=== PATIENT | female | born 1935 | race Caucasian/White ===

== ENCOUNTER 2022-02-11 11:42 | Emergency (ER) | payer MEDICARE ==
[2022-02-11 11:53] VITALS: TEMP 97.7
--- NOTE | 2022-02-11 11:55 | ED ---
General Adult HPI - General Chief complaint: Weakness Stated complaint: Poss Sepsis Time Seen by Provider: 02/11/22 11:54 Source: patient, RN notes reviewed Mode of arrival: wheelchair Limitations: no limitations - History of Present Illness Initial comments: Patient is an 86-year-old female presents to the emergency room with progressively worsening generalized weakness and malaise with associated nausea. She has a history of common bile duct obstruction with sepsis previously treated by Dr. Tremayne bush and inpatient at [facility]. She states the nausea has been ongoing for approximately 2 weeks but over the last few days she has needed to treat low-grade fevers with aspirin. She states that she does not have a thermometer at home but she has association. Warm feeling followed by chills. She denies any vomiting with her nausea. She has chronic diarrhea and abdominal pain which she is on fructosamine and Imodium for. She denies any blood or mucus in her stool. She denies any known exposure to COVID or influenza. She has past medical history significant for hypertension and hypothyroidism. She states that her thyroid medication was recently adjusted and due to side effects was brought back down to her previous dose of 50 g. Her granddaughter at the bedside also noted elevated liver enzymes during her previous hospitalization which were trending back to normal at her last lab check with her PCP. She denies any other complaints or concerns at this time. - Related Data Home Medications Medication Instructions Recorded Confirmed Aspirin 325 mg PO QID PRN 02/11/22 02/11/22 Aspirin EC [Ecotrin Low Dose] 81 mg PO PC-BRKFST 02/11/22 02/11/22 Famotidine [Pepcid] 20 mg PO BID 02/11/22 02/11/22 Hyoscyamine Sulfate [Levsin-Sl] 0.125 mg SL Q4H 02/11/22 02/11/22 Levothyroxine Sodium [Synthroid] 50 mcg PO AC-BRKFST 02/11/22 02/11/22 Losartan [Cozaar] 50 mg PO PC-BRKFST 02/11/22 02/11/22 Magnesium Oxide [Mag-Ox] 250 mg PO DAILY@1400 02/11/22 02/11/22 amLODIPine [Norvasc] 5 mg PO PC-BRKFST 06/12/22 06/12/22 Previous Rx's Medication Instructions Recorded Ciprofloxacin HCl [Cipro] 500 mg PO BID 5 Days #10 tab 02/11/22 Allergies Allergy/AdvReac Type Severity Reaction Status Date / Time Penicillins Allergy Rash/Hives Verified 02/11/22 13:15 Sulfa (Sulfonamide Allergy Rash/Hives Verified 02/11/22 13:15 Antibiotics) Iodinated Contrast Media AdvReac Swelling Verified 02/11/22 13:15 all over body Review of Systems ROS Statement: Those systems with pertinent positive or pertinent negative responses have been documented in the HPI. ROS Other: All systems not noted in ROS Statement are negative. Past Medical History Past Medical History: Hypertension, Thyroid Disorder History of Any Multi-Drug Resistant Organisms: None Reported Past Surgical History: Appendectomy, Bowel Resection Past Psychological History: No Psychological Hx Reported Smoking Status: Never smoker Past Alcohol Use History: None Reported Past Drug Use History: None Reported General Exam Limitations: no limitations General appearance: alert, in no apparent distress Head exam: Present: atraumatic, normocephalic, normal inspection Eye exam: Present: normal appearance, PERRL, EOMI. Absent: scleral icterus, conjunctival injection, periorbital swelling ENT exam: Present: normal exam, mucous membranes moist Neck exam: Present: normal inspection. Absent: tenderness, meningismus, lymphadenopathy Respiratory exam: Present: normal lung sounds bilaterally. Absent: respiratory distress, wheezes, rales, rhonchi, stridor Cardiovascular Exam: Present: regular rate, normal rhythm, systolic murmur (II/). Absent: rubs, gallop, clicks, JVD GI/Abdominal exam: Present: soft, normal bowel sounds. Absent: distended, tenderness, guarding, rebound, rigid Rectal exam: Present: deferred Extremities exam: Absent: tenderness, pedal edema, joint swelling Back exam: Absent: CVA tenderness (R), CVA tenderness (L) Neurological exam: Present: alert, oriented X3, CN II-XII intact Psychiatric exam: Present: normal affect, normal mood Skin exam: Present: warm, dry, intact, normal color. Absent: rash Course Vital Signs 02/11/22 02/11/22 02/11/22 11:51 13:30 14:00 Temperature 97.7 F Pulse Rate 86 79 81 Respiratory 16 15 27 H Rate Blood Pressure 146/84 147/80 154/90 O2 Sat by Pulse 98 96 95 Oximetry Medical Decision Making - Medical Decision Making Overall lab stable. No leukocytosis or elevated lactic acid level noted. Liver enzymes normal. Sodium slightly low chloride slightly low. IV fluids started for gentle hydration. Computed tomography scan due to Nausea along with previous history previous ERCP and bacteremia. 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 Previous computed tomography scan from and October reviewed showing computed tomography scan at that time at 3.6 cm. No abdominal pain or pulsation noted. 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 UA consistent for urinary tract infection. ALLERGIES to penicillin and sulfa noted. Reports no compilations from Cipro previously. Will treat with oral Cipro. Patient also complaining of slight headache at this time which she takes aspirin for regularly at home. No associated neurological deficits with headaches. Headache characteristic and pain level unchanged from previous headaches. Discussed the risk factors associated with regular aspirin use advised may continue baby aspirin at home but to use utilize Tylenol as needed for headache pain. Will give dose of oral Tylenol and monitor response. If improvement in headache symptoms will discharge home on oral medications. - Lab Data Result diagrams: 02/11/22 12:19 02/11/22 12:19 Lab Results 02/11/22 02/11/22 02/11/22 Range/Units 12:19 12:19 12:19 WBC 9.8 (3.8-10.6) k/uL RBC 4.97 (3.80-5.40) m/uL Hgb 14.6 (11.4-16.0) gm/dL Hct 42.2 (34.0-46.0) % MCV 84.9 (80.0-100.0) fL MCH 29.3 (25.0-35.0) pg MCHC 34.5 (31.0-37.0) g/dL RDW 13.5 (11.5-15.5) % Plt Count 271 (150-450) k/uL MPV 7.1 Neutrophils % 83 % Lymphocytes % 10 % Monocytes % 4 % Eosinophils % 2 % Basophils % 1 % Neutrophils # 8.2 H (1.3-7.7) k/uL Lymphocytes # 0.9 L (1.0-4.8) k/uL Monocytes # 0.4 (0-1.0) k/uL Eosinophils # 0.2 (0-0.7) k/uL Basophils # 0.1 (0-0.2) k/uL PT 10.5 (9.0-12.0) sec INR 1.0 (<1.2) APTT 26.2 (22.0-30.0) sec Sodium (137-145) mmol/L Potassium (3.5-5.1) mmol/L Chloride (98-107) mmol/L Carbon Dioxide (22-30) mmol/L Anion Gap mmol/L BUN (7-17) mg/dL Creatinine (0.52-1.04) mg/dL Est GFR (CKD-EPI)AfAm (>60 ml/min/1.73 sqM) Est GFR (CKD-EPI)NonAf (>60 ml/min/1.73 sqM) Glucose (74-99) mg/dL Plasma Lactic Acid [place] (0.7-2.0) mmol/L Calcium (8.4-10.2) mg/dL Total Bilirubin (0.2-1.3) mg/dL AST (14-36) U/L ALT (4-34) U/L Alkaline Phosphatase (38-126) U/L Troponin I (0.000-0.034) ng/mL Total Protein (6.3-8.2) g/dL Albumin (3.5-5.0) g/dL TSH (0.465-4.680) mIU/L Urine Color Light Yellow Urine Appearance Cloudy H (Clear) Urine pH 6.5 (5.0-8.0) Ur Specific [place] 1.006 (1.001-1.035) Urine Protein Negative (Negative) Urine Glucose (UA) Negative (Negative) Urine Ketones Negative (Negative) Urine Blood Negative (Negative) Urine Nitrite Negative (Negative) Urine Bilirubin Negative (Negative) Urine Urobilinogen <2.0 (<2.0) mg/dL Ur Leukocyte Esterase Large H (Negative) Urine RBC 1 (0-5) /hpf Urine WBC 60 H (0-5) /hpf Urine WBC Clumps Rare H (None) /hpf Ur Squamous Epith Cells 4 (0-4) /hpf Urine Bacteria Few H (None) /hpf Urine Mucus Rare H (None) /hpf Coronavirus (PCR) (Not Detectd) Influenza Type A RNA (Not Detectd) Influenza Type B (PCR) (Not Detectd) 02/11/22 02/11/22 02/11/22 Range/Units 12:19 12:19 12:19 WBC (3.8-10.6) k/uL RBC (3.80-5.40) m/uL Hgb (11.4-16.0) gm/dL Hct (34.0-46.0) % MCV (80.0-100.0) fL MCH (25.0-35.0) pg MCHC (31.0-37.0) g/dL RDW (11.5-15.5) % Plt Count (150-450) k/uL MPV Neutrophils % % Lymphocytes % % Monocytes % % Eosinophils % % Basophils % % Neutrophils # (1.3-7.7) k/uL Lymphocytes # (1.0-4.8) k/uL Monocytes # (0-1.0) k/uL Eosinophils # (0-0.7) k/uL Basophils # (0-0.2) k/uL PT (9.0-12.0) sec INR (<1.2) APTT (22.0-30.0) sec Sodium 127 L (137-145) mmol/L Potassium 4.3 (3.5-5.1) mmol/L Chloride 94 L (98-107) mmol/L Carbon Dioxide 22 (22-30) mmol/L Anion Gap 11 mmol/L BUN 13 (7-17) mg/dL Creatinine 0.71 (0.52-1.04) mg/dL Est GFR (CKD-EPI)AfAm 89 (>60 ml/min/1.73 sqM) Est GFR (CKD-EPI)NonAf 77 (>60 ml/min/1.73 sqM) Glucose 119 H (74-99) mg/dL Plasma Lactic Acid [place] 1.1 (0.7-2.0) mmol/L Calcium 9.1 (8.4-10.2) mg/dL Total Bilirubin 0.8 (0.2-1.3) mg/dL AST 27 (14-36) U/L ALT 17 (4-34) U/L Alkaline Phosphatase 99 (38-126) U/L Troponin I <0.012 (0.000-0.034) ng/mL Total Protein 7.2 (6.3-8.2) g/dL Albumin 4.1 (3.5-5.0) g/dL TSH 2.300 (0.465-4.680) mIU/L Urine Color Urine Appearance (Clear) Urine pH (5.0-8.0) Ur Specific [place] (1.001-1.035) Urine Protein (Negative) Urine Glucose (UA) (Negative) Urine Ketones (Negative) Urine Blood (Negative) Urine Nitrite (Negative) Urine Bilirubin (Negative) Urine Urobilinogen (<2.0) mg/dL Ur Leukocyte Esterase (Negative) Urine RBC (0-5) /hpf Urine WBC (0-5) /hpf Urine WBC Clumps (None) /hpf Ur Squamous Epith Cells (0-4) /hpf Urine Bacteria (None) /hpf Urine Mucus (None) /hpf Coronavirus (PCR) (Not Detectd) Influenza Type A RNA (Not Detectd) Influenza Type B (PCR) (Not Detectd) 02/11/22 02/11/22 Range/Units 14:15 14:15 WBC (3.8-10.6) k/uL RBC (3.80-5.40) m/uL Hgb (11.4-16.0) gm/dL Hct (34.0-46.0) % MCV (80.0-100.0) fL MCH (25.0-35.0) pg MCHC (31.0-37.0) g/dL RDW (11.5-15.5) % Plt Count (150-450) k/uL MPV Neutrophils % % Lymphocytes % % Monocytes % % Eosinophils % % Basophils % % Neutrophils # (1.3-7.7) k/uL Lymphocytes # (1.0-4.8) k/uL Monocytes # (0-1.0) k/uL Eosinophils # (0-0.7) k/uL Basophils # (0-0.2) k/uL PT (9.0-12.0) sec INR (<1.2) APTT (22.0-30.0) sec Sodium (137-145) mmol/L Potassium (3.5-5.1) mmol/L Chloride (98-107) mmol/L Carbon Dioxide (22-30) mmol/L Anion Gap mmol/L BUN (7-17) mg/dL Creatinine (0.52-1.04) mg/dL Est GFR (CKD-EPI)AfAm (>60 ml/min/1.73 sqM) Est GFR (CKD-EPI)NonAf (>60 ml/min/1.73 sqM) Glucose (74-99) mg/dL Plasma Lactic Acid [place] (0.7-2.0) mmol/L Calcium (8.4-10.2) mg/dL Total Bilirubin (0.2-1.3) mg/dL AST (14-36) U/L ALT (4-34) U/L Alkaline Phosphatase (38-126) U/L Troponin I (0.000-0.034) ng/mL Total Protein (6.3-8.2) g/dL Albumin (3.5-5.0) g/dL TSH (0.465-4.680) mIU/L Urine Color Urine Appearance (Clear) Urine pH (5.0-8.0) Ur Specific [place] (1.001-1.035) Urine Protein (Negative) Urine Glucose (UA) (Negative) Urine Ketones (Negative) Urine Blood (Negative) Urine Nitrite (Negative) Urine Bilirubin (Negative) Urine Urobilinogen (<2.0) mg/dL Ur Leukocyte Esterase (Negative) Urine RBC (0-5) /hpf Urine WBC (0-5) /hpf Urine WBC Clumps (None) /hpf Ur Squamous Epith Cells (0-4) /hpf Urine Bacteria (None) /hpf Urine Mucus (None) /hpf Coronavirus (PCR) Not Detected (Not Detectd) Influenza Type A RNA Not Detected (Not Detectd) Influenza Type B (PCR) Not Detected (Not Detectd) EKG shows sinus rhythm with possible anterior myocardial infarct probably old. 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 No acute abnormalities the abdomen and pelvis. 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 Disposition Clinical Impression: UTI (urinary tract infection) Disposition: HOME SELF-CARE Condition: Stable Instructions (If sedation given, give patient instructions): Urinary Tract Infection in Women (ED) Additional Instructions: Please return to the Emergency Department if symptoms worsen or any other concerns. Prescriptions: Ciprofloxacin HCl [Cipro] 500 mg PO BID 5 Days #10 tab Is patient prescribed a controlled substance at d/c from ED?: No Referrals: Burak Odom MD [Primary Care Provider] - 1-2 days Time of Disposition: 16:16
[2022-02-11] MEDS ORDERED: SODIUM CHLORIDE 0.9% 1,000 ML IV STA (12:03)
[2022-02-11 13:01] LABS: HCT 42.2 % (34.0-46.0); HGB 14.6 gm/dL (11.4-16.0); MCH 29.3 pg (25.0-35.0); MCHC 34.5 g/dL (31.0-37.0); MCV 84.9 fL (80.0-100.0); Mean Platelet Volume 7.1; Neutrophils % (A) 83 %; Platelet Count 271 k/uL (150-450); RBC 4.97 m/uL (3.80-5.40); RDW 13.5 % (11.5-15.5); WBC 9.8 k/uL (3.8-10.6)
[2022-02-11 13:02] LABS: Basophils # (A) 0.1 k/uL (0-0.2); Basophils % (A) 1 %; Eosinophils # (A) 0.2 k/uL (0-0.7); Eosinophils % (A) 2 %; Lymphocytes # (A) 0.9 k/uL (1.0-4.8); Lymphocytes % (A) 10 %; Monocytes # (A) 0.4 k/uL (0-1.0); Monocytes % (A) 4 %; Neutrophils # (A) 8.2 k/uL (1.3-7.7)
[2022-02-11 13:07] LABS: Partial Thromboplastin Time 26.2 sec (22.0-30.0); Prothrombin Time 10.5 sec (9.0-12.0)
[2022-02-11 13:10] LABS: Albumin 4.1 g/dL (3.5-5.0); Calcium 9.1 mg/dL (8.4-10.2); Potassium 4.3 mmol/L (3.5-5.1); Total Bilirubin 0.8 mg/dL (0.2-1.3); Total Protein 7.2 g/dL (6.3-8.2)
[2022-02-11] MEDS ORDERED: DEXTROSE 5%-0.45% NACL 1,000 ML IV ONE (13:51)
--- NOTE | 2022-02-11 14:55 | CT ---
EXAMINATION TYPE: CT abdomen pelvis wo con DATE OF EXAM: 02/11/2022 COMPARISON: None HISTORY: Abdominal pain, hx CBD obstruction CT DLP: 419 mGycm Automated exposure control for dose reduction was used. Images obtained from the diaphragm to the floor the pelvis with no contrast. There is some patchy scarring and atelectasis at the lung bases. Heart size is normal. No pericardial effusion. No pleural effusion. Liver is intact. There are clips from cholecystectomy. Spleen is intact. There is no pancreatic mass. Stomach is intact. There is no adrenal mass. Kidneys show normal size and contour. No hydronephrosis. Ureters are not di lated. There is no retroperitoneal adenopathy. Bladder distends smoothly. There is left lower quadran t ventral hernia on the left side that contains small bowel. No bowel obstruction. There is no mesent richie edema. No ascites or free air. No sign of a bowel obstruction. Appendix not seen. No sign of thi ckened appendix. There is stent in the abdominal aorta. There is atherosclerotic vascular disease. Th ere are multiple sigmoid diverticula. No diverticulitis. 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 No evidence of a leak. There is mild thoracolumbar levoscoliosis. Bony pelvis is intact. No evidence of a hip fracture. Ther e is a degenerative first-degree L4-5 spondylolisthesis. IMPRESSION: Aortoiliac endograft. Aneurysm lower abdominal aorta. No acute abnormality in the abdomen and pelvis. Ventral hernia with some incarcerated small bowel but no bowel obstruction. Scarring and atelectasis at the lung bases.
[2022-02-11 15:54] LABS: Appearance,Urine Cloudy (Clear); Bacteria,Urine Few /hpf; Bilirubin,Urine Negative (Negative); Blood,Urine Negative (Negative); Color,Urine Light Yellow; Glucose,Urine (UA) Negative (Negative); Ketones,Urine Negative (Negative); Leukocyte Esterase,Urine Large (Negative); Mucus,Urine Rare /hpf; Nitrite,Urine Negative (Negative); PH, Urine 6.5 (5.0-8.0); Protein,Urine Negative (Negative); RBC,Urine 1 /hpf (0-5); Specific Gravity,Urine 1.006 (1.001-1.035); Squamous Epithelial Cell,Urine 4 /hpf (0-4); Urobilinogen,Urine <2.0 mg/dL (<2.0); WBC,Urine 60 /hpf (0-5)
[2022-02-11] MEDS ORDERED: CIPROFLOXACIN HCL 500 MG TAB PO STA (16:09)
[2022-02-11] MEDS ORDERED: ACETAMINOPHEN TAB 500 MG TAB PO STA (16:10)
[2022-02-11 16:58] VITALS: BP 167/85; PULSE 86; RESP 18
== END 2022-02-11 17:05 | disposition home or self-care (01) ==
LOC: EC 11:42
DX: N39.0 Urinary tract infection, site not specified (principal); Z91.041 Radiographic dye allergy status; I10 Essential (primary) hypertension; E07.9 Disorder of thyroid, unspecified; Z79.899 Other long term (current) drug therapy; Z20.822 Contact with and (suspected) exposure to COVID-19; Z88.0 Allergy status to penicillin; Z88.2 Allergy status to sulfonamides
CPT/HCPCS: 36415; 74176; 80053; 81001; 83605; 84443; 84484; 85025; 85610; 85730; 87040; 87077; 87086; 87186; 87502; 87635; 93005; 96360; 96361; 99285

== ENCOUNTER 2022-02-28 07:26 | Inpatient (IN) | payer MEDICARE ==
[2022-02-28] MEDS ORDERED: SODIUM CHLORIDE 0.9% 1,000 ML IV STA (07:32)
[2022-02-28] MEDS ORDERED: SODIUM CHLORIDE 0.9% 500 ML 500 ML IV STA (07:32)
[2022-02-28] MEDS ORDERED: ONDANSETRON 4 MG/2 ML VIAL IVP STA (07:32)
--- NOTE | 2022-02-28 07:39 | ED ---
General Adult HPI - General Stated complaint: UTI Time Seen by Provider: 02/28/22 07:26 Source: patient, EMS, RN notes reviewed, old records reviewed Mode of arrival: EMS - History of Present Illness Initial comments: 86-year-old female history of urinary tract infections and irritable bowel partial colon resection aortic stent also history of common bile duct obstruction past who presents by EMS today with complaints of not feeling well for last day or so she did decrease oral intake she's had nausea vomiting. She was started on Macrobid 3 days ago apparently empirically for suspected UTI she has been taking an empty stomach but she does not feel very well she feels weak and feels as if she would fall she try to walk. No overt fever she has she'll cold in the emergency department no known exposure to influenza or COVID-19 she was seen in this department on the of this month and diagnosed with a UTI at that time. She was placed on Cipro. - Related Data Home Medications Medication Instructions Recorded Confirmed Hyoscyamine Sulfate [Levsin-Sl] 0.125 mg SL AC-TID PRN 02/11/22 02/28/22 Levothyroxine Sodium [Synthroid] 50 mcg PO AC-BRKFST 02/11/22 02/28/22 Losartan [Cozaar] 50 mg PO PC-BRKFST 02/11/22 02/28/22 amLODIPine [Norvasc] 5 mg PO PC-BRKFST 02/11/22 02/28/22 Loperamide [Imodium] 2 mg PO QID PRN 02/28/22 02/28/22 Nitrofurantoin Monohyd/M-Cryst 100 mg PO Q12HR 02/28/22 02/28/22 [Macrobid] Ondansetron Odt [Zofran Odt] 4 mg PO Q8H PRN 02/28/22 02/28/22 Allergies Allergy/AdvReac Type Severity Reaction Status Date / Time Penicillins Allergy Rash/Hives Verified 02/28/22 07:48 Sulfa (Sulfonamide Allergy Rash/Hives Verified 02/28/22 07:48 Antibiotics) Iodinated Contrast Media AdvReac Swelling Verified 02/28/22 07:48 all over body Review of Systems ROS Statement: Those systems with pertinent positive or pertinent negative responses have been documented in the HPI. ROS Other: All systems not noted in ROS Statement are negative. Past Medical History Past Medical History: Hypertension, Thyroid Disorder History of Any Multi-Drug Resistant Organisms: None Reported Past Surgical History: Appendectomy, Bowel Resection Past Psychological History: No Psychological Hx Reported Smoking Status: Never smoker Past Alcohol Use History: None Reported Past Drug Use History: None Reported General Exam - General Exam Comments Initial Comments: This is a well-developed frail-appearing female who is awake alert oriented 4 General appearance: alert, lethargic Head exam: Present: atraumatic, normocephalic, normal inspection Eye exam: Present: normal appearance, PERRL, EOMI. Absent: scleral icterus, conjunctival injection, periorbital swelling ENT exam: Present: mucous membranes dry Neck exam: Present: normal inspection, full ROM, other (No stridor JVD or bruits). Absent: tenderness, meningismus, lymphadenopathy Respiratory exam: Present: normal lung sounds bilaterally. Absent: respiratory distress, wheezes, rales, rhonchi, stridor Cardiovascular Exam: Present: normal rhythm, tachycardia, normal heart sounds. Absent: systolic murmur, diastolic murmur, rubs, gallop, clicks GI/Abdominal exam: Present: soft, normal bowel sounds. Absent: distended, tenderness, guarding, rebound, rigid, bruit, pulsatile mass Rectal exam: Present: deferred Extremities exam: Present: normal inspection, full ROM, normal capillary refill. Absent: tenderness, pedal edema, joint swelling, calf tenderness Back exam: Present: normal inspection Neurological exam: Present: alert, oriented X3, CN II-XII intact Psychiatric exam: Present: normal affect, normal mood Skin exam: Present: warm, dry, intact, normal color. Absent: rash Course Vital Signs 02/28/22 02/28/22 02/28/22 07:41 09:16 11:00 Temperature 101 F H 98.2 F Pulse Rate 121 H 109 H 88 Respiratory 18 16 18 Rate Blood Pressure 148/89 98/64 106/55 O2 Sat by Pulse 96 96 96 Oximetry EKG Findings - EKG Results: EKG: interpreted by LUCAS, sinus rhythm (Sinus tachycardia rate 122. Interval 133 QRS taoism 81 QT since QTC 311/383 st-t wave changes) Medical Decision Making - Medical Decision Making I did discuss findings with the patient as well as family members were present patient does trace evidence of dehydration she had a fever but no definitive infectious process is obvious at this time no air-fluid levels may be intra- abdominal. Patient be admitted I did discuss case with Dr. Patino. Patient will be admitted place on IV antibiotics Levaquin and Flagyl Dr. Paul will be consulted from infectious disease. Patient also demonstrate evidence of hypomagnesemia as well as hyponatremia. - Lab Data Result diagrams: 02/28/22 07:56 02/28/22 07:56 Lab Results 02/28/22 02/28/22 02/28/22 Range/Units 07:56 07:56 07:56 WBC 15.7 H (3.8-10.6) k/uL RBC 4.77 (3.80-5.40) m/uL Hgb 14.0 (11.4-16.0) gm/dL Hct 40.7 (34.0-46.0) % MCV 85.3 (80.0-100.0) fL MCH 29.3 (25.0-35.0) pg MCHC 34.4 (31.0-37.0) g/dL RDW 12.7 (11.5-15.5) % Plt Count 240 (150-450) k/uL MPV 7.8 Neutrophils % 94 % Lymphocytes % 1 % Monocytes % 4 % Eosinophils % 1 % Basophils % 0 % Neutrophils # 14.7 H (1.3-7.7) k/uL Lymphocytes # 0.1 L (1.0-4.8) k/uL Monocytes # 0.6 (0-1.0) k/uL Eosinophils # 0.2 (0-0.7) k/uL Basophils # 0.0 (0-0.2) k/uL Sodium 124 L (137-145) mmol/L Potassium 4.6 (3.5-5.1) mmol/L Chloride 95 L (98-107) mmol/L Carbon Dioxide 21 L (22-30) mmol/L Anion Gap 8 mmol/L BUN 11 (7-17) mg/dL Creatinine 0.68 (0.52-1.04) mg/dL Est GFR (CKD-EPI)AfAm >90 (>60 ml/min/1.73 sqM) Est GFR (CKD-EPI)NonAf 79 (>60 ml/min/1.73 sqM) Glucose 156 H (74-99) mg/dL Plasma Lactic Acid Juan Pablo (0.7-2.0) mmol/L Calcium 8.9 (8.4-10.2) mg/dL Magnesium 1.3 L (1.6-2.3) mg/dL Total Bilirubin 1.0 (0.2-1.3) mg/dL AST 35 (14-36) U/L ALT 22 (4-34) U/L Alkaline Phosphatase 101 (38-126) U/L Troponin I (0.000-0.034) ng/mL Total Protein 7.1 (6.3-8.2) g/dL Albumin 4.0 (3.5-5.0) g/dL Amylase 52 (30-110) U/L Lipase 73 (23-300) U/L Urine Color Yellow Urine Appearance Clear (Clear) Urine pH 7.0 (5.0-8.0) Ur Specific [place] 1.010 (1.001-1.035) Urine Protein Negative (Negative) Urine Glucose (UA) Negative (Negative) Urine Ketones 1+ H (Negative) Urine Blood Negative (Negative) Urine Nitrite Negative (Negative) Urine Bilirubin Negative (Negative) Urine Urobilinogen <2.0 (<2.0) mg/dL Ur Leukocyte Esterase Small H (Negative) Urine RBC 1 (0-5) /hpf Urine WBC 6 H (0-5) /hpf Ur Squamous Epith Cells 3 (0-4) /hpf Hyaline Casts 1 (0-2) /lpf Urine Mucus Rare H (None) /hpf Coronavirus (PCR) (Not Detectd) Influenza Type A RNA (Not Detectd) Influenza Type B (PCR) (Not Detectd) 02/28/22 02/28/22 02/28/22 Range/Units 07:56 07:56 07:56 WBC (3.8-10.6) k/uL RBC (3.80-5.40) m/uL Hgb (11.4-16.0) gm/dL Hct (34.0-46.0) % MCV (80.0-100.0) fL MCH (25.0-35.0) pg MCHC (31.0-37.0) g/dL RDW (11.5-15.5) % Plt Count (150-450) k/uL MPV Neutrophils % % Lymphocytes % % Monocytes % % Eosinophils % % Basophils % % Neutrophils # (1.3-7.7) k/uL Lymphocytes # (1.0-4.8) k/uL Monocytes # (0-1.0) k/uL Eosinophils # (0-0.7) k/uL Basophils # (0-0.2) k/uL Sodium (137-145) mmol/L Potassium (3.5-5.1) mmol/L Chloride (98-107) mmol/L Carbon Dioxide (22-30) mmol/L Anion Gap mmol/L BUN (7-17) mg/dL Creatinine (0.52-1.04) mg/dL Est GFR (CKD-EPI)AfAm (>60 ml/min/1.73 sqM) Est GFR (CKD-EPI)NonAf (>60 ml/min/1.73 sqM) Glucose (74-99) mg/dL Plasma Lactic Acid Juan Pablo 1.6 (0.7-2.0) mmol/L Calcium (8.4-10.2) mg/dL Magnesium (1.6-2.3) mg/dL Total Bilirubin (0.2-1.3) mg/dL AST (14-36) U/L ALT (4-34) U/L Alkaline Phosphatase (38-126) U/L Troponin I <0.012 (0.000-0.034) ng/mL Total Protein (6.3-8.2) g/dL Albumin (3.5-5.0) g/dL Amylase (30-110) U/L Lipase (23-300) U/L Urine Color Urine Appearance (Clear) Urine pH (5.0-8.0) Ur Specific [place] (1.001-1.035) Urine Protein (Negative) Urine Glucose (UA) (Negative) Urine Ketones (Negative) Urine Blood (Negative) Urine Nitrite (Negative) Urine Bilirubin (Negative) Urine Urobilinogen (<2.0) mg/dL Ur Leukocyte Esterase (Negative) Urine RBC (0-5) /hpf Urine WBC (0-5) /hpf Ur Squamous Epith Cells (0-4) /hpf Hyaline Casts (0-2) /lpf Urine Mucus (None) /hpf Coronavirus (PCR) (Not Detectd) Influenza Type A RNA Not Detected (Not Detectd) Influenza Type B (PCR) Not Detected (Not Detectd) 02/28/22 Range/Units 07:56 WBC (3.8-10.6) k/uL RBC (3.80-5.40) m/uL Hgb (11.4-16.0) gm/dL Hct (34.0-46.0) % MCV (80.0-100.0) fL MCH (25.0-35.0) pg MCHC (31.0-37.0) g/dL RDW (11.5-15.5) % Plt Count (150-450) k/uL MPV Neutrophils % % Lymphocytes % % Monocytes % % Eosinophils % % Basophils % % Neutrophils # (1.3-7.7) k/uL Lymphocytes # (1.0-4.8) k/uL Monocytes # (0-1.0) k/uL Eosinophils # (0-0.7) k/uL Basophils # (0-0.2) k/uL Sodium (137-145) mmol/L Potassium (3.5-5.1) mmol/L Chloride (98-107) mmol/L Carbon Dioxide (22-30) mmol/L Anion Gap mmol/L BUN (7-17) mg/dL Creatinine (0.52-1.04) mg/dL Est GFR (CKD-EPI)AfAm (>60 ml/min/1.73 sqM) Est GFR (CKD-EPI)NonAf (>60 ml/min/1.73 sqM) Glucose (74-99) mg/dL Plasma Lactic Acid Juan Pablo (0.7-2.0) mmol/L Calcium (8.4-10.2) mg/dL Magnesium (1.6-2.3) mg/dL Total Bilirubin (0.2-1.3) mg/dL AST (14-36) U/L ALT (4-34) U/L Alkaline Phosphatase (38-126) U/L Troponin I (0.000-0.034) ng/mL Total Protein (6.3-8.2) g/dL Albumin (3.5-5.0) g/dL Amylase (30-110) U/L Lipase (23-300) U/L Urine Color Urine Appearance (Clear) Urine pH (5.0-8.0) Ur Specific [place] (1.001-1.035) Urine Protein (Negative) Urine Glucose (UA) (Negative) Urine Ketones (Negative) Urine Blood (Negative) Urine Nitrite (Negative) Urine Bilirubin (Negative) Urine Urobilinogen (<2.0) mg/dL Ur Leukocyte Esterase (Negative) Urine RBC (0-5) /hpf Urine WBC (0-5) /hpf Ur Squamous Epith Cells (0-4) /hpf Hyaline Casts (0-2) /lpf Urine Mucus (None) /hpf Coronavirus (PCR) Not Detected (Not Detectd) Influenza Type A RNA (Not Detectd) Influenza Type B (PCR) (Not Detectd) - Radiology Data Radiology results: report reviewed (Image reviewed as well as reports no definitive pathology and chest x-ray KUB shows evidence of some air-fluid levels. Enteritis is considered), image reviewed Disposition Clinical Impression: Febrile illness, acute, Dehydration, Hyponatremia syndrome, Hypomagnesemia, Weakness, Enteritis Disposition: ADMITTED IP TO THIS [facility] Condition: Fair Referrals: Burak Odom MD [Primary Care Provider] - 1-2 days Decision Date: 02/28/22 Decision Time: 12:00
[2022-02-28] MEDS ORDERED: ACETAMINOPHEN TAB 500 MG TAB PO STA (07:48)
[2022-02-28 08:19] LABS: ALT 22 U/L (4-34); African American GFR (CKD) >90 (>60 ml/min/1.73 sqM); Amylase 52 U/L (30-110); Anion Gap 8 mmol/L; Blood Urea Nitrogen 11 mg/dL (7-17); Calcium 8.9 mg/dL (8.4-10.2); Carbon Dioxide 21 mmol/L (22-30); Chloride 95 mmol/L (98-107); Glucose 156 mg/dL (74-99); Lipase 73 U/L (23-300); Non-African American GFR(CKD) 79 (>60 ml/min/1.73 sqM); Sodium 124 mmol/L (137-145); Total Protein 7.1 g/dL (6.3-8.2)
[2022-02-28 08:26] LABS: AST 35 U/L (14-36); Alkaline Phosphatase 101 U/L (38-126); Basophils % (A) 0 %; Eosinophils # (A) 0.2 k/uL (0-0.7); Eosinophils % (A) 1 %; HCT 40.7 % (34.0-46.0); Lymphocytes # (A) 0.1 k/uL (1.0-4.8); Lymphocytes % (A) 1 %; MCH 29.3 pg (25.0-35.0); MCHC 34.4 g/dL (31.0-37.0); MCV 85.3 fL (80.0-100.0); Magnesium 1.3 mg/dL (1.6-2.3); Mean Platelet Volume 7.8; Monocytes # (A) 0.6 k/uL (0-1.0); Monocytes % (A) 4 %; Neutrophils # (A) 14.7 k/uL (1.3-7.7); Neutrophils % (A) 94 %; Platelet Count 240 k/uL (150-450); Potassium 4.6 mmol/L (3.5-5.1); RBC 4.77 m/uL (3.80-5.40); RDW 12.7 % (11.5-15.5); WBC 15.7 k/uL (3.8-10.6)
--- NOTE | 2022-02-28 09:59 | XR ---
EXAMINATION TYPE: XR chest 2V DATE OF EXAM: 02/28/2022 COMPARISON: None INDICATION: Weakness TECHNIQUE: Frontal and lateral views of the chest are obtained. FINDINGS: The heart size is normal. The pulmonary vasculature is normal. The lungs are clear. There is hyperinflation flattening diaphragms compatible with COPD. IMPRESSION: 1. No acute pulmonary process. 2. COPD
[2022-02-28 10:02] LABS: Appearance,Urine Clear (Clear); Bilirubin,Urine Negative (Negative); Blood,Urine Negative (Negative); Color,Urine Yellow; Glucose,Urine (UA) Negative (Negative); Hyaline Casts,Urine 1 /lpf (0-2); Ketones,Urine 1+ (Negative); Leukocyte Esterase,Urine Small (Negative); Mucus,Urine Rare /hpf; Nitrite,Urine Negative (Negative); Protein,Urine Negative (Negative); RBC,Urine 1 /hpf (0-5); Squamous Epithelial Cell,Urine 3 /hpf (0-4); Urobilinogen,Urine <2.0 mg/dL (<2.0); WBC,Urine 6 /hpf (0-5)
--- NOTE | 2022-02-28 10:03 | XR ---
EXAMINATION TYPE: XR KUB DATE OF EXAM: 02/28/2022 COMPARISON: None INDICATION: Abdomen pain TECHNIQUE: Single view abdomen upright view FINDINGS: Scoliosis is present. There is tortuosity of the aorta as demonstrated by the aortoiliac stent presen t. There are some scattered air-fluid levels within small bowel loops. Mild differential air-fluid level s are present within the midabdomen. Air is present within the colon. No free air is present. Psoas margins are normal. No organomegaly is present. IMPRESSION: 1. Scattered air-fluid levels with couple of mild differential air-fluid levels within small bowel lo ops. Loops of bowel appear nondilated. Air is within the colon. Correlate for gastroenteritis. Early mild small bowel obstruction is considered less likely but could be considered within the differentia l, follow-up can be performed as clinically indicated.
[2022-02-28] MEDS: MAGNESIUM SULFATE-D5W PMX 1 GM in DEXTROSE/WATER 1 100ML.BAG IVPB SCH ×2 (11:57→13:51)
[2022-02-28] MEDS ORDERED: NALOXONE 0.4 MG/ML 1 ML VIAL IV PRN (12:22)
[2022-02-28] MEDS ORDERED: ONDANSETRON 4 MG/2 ML VIAL IVP PRN (12:22)
[2022-02-28] MEDS ORDERED: LEVOFLOXACIN 750MG-D5W PMX 750 MG in DEXTROSE/WATER 1 150ML.BAG IVPB STA (12:24)
[2022-02-28] MEDS ORDERED: metroNIDAZOLE-NS PMX 500 MG in SALINE 1 100ML.BAG IVPB STA (12:26)
--- NOTE | 2022-02-28 15:44 | P.GSCN ---
History of Present Illness Consult date: 02/28/22 History of present illness: The patient presented to theER with complaints of nausea and vomiting. Also having chills. Generally not feeling well. About 2 weeks ago she was diagnosed with a UTI and started on antibiotics. 3 days ago, she was restarted on an oral antibiotic which she didnt tolerate. Denies diarrhea or constipation. No blood in the stool. No one at home has been ill. 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 There was a duodenal ulcer noted at the time of ERCP. 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 Since that time she has had a ventral hernia which does not bother her. Review of Systems All systems: negative Past Medical History Past Medical History: Hypertension, Thyroid Disorder History of Any Multi-Drug Resistant Organisms: None Reported Past Surgical History: Appendectomy, Bowel Resection Past Psychological History: No Psychological Hx Reported Smoking Status: Never smoker Past Alcohol Use History: None Reported Past Drug Use History: None Reported Medications and Allergies Home Medications Medication Instructions Recorded Confirmed Type Hyoscyamine Sulfate [Levsin-Sl] 0.125 mg SL AC-TID PRN 02/11/22 02/28/22 History Levothyroxine Sodium [Synthroid] 50 mcg PO AC-BRKFST 02/11/22 02/28/22 History Losartan [Cozaar] 50 mg PO PC-BRKFST 02/11/22 02/28/22 History amLODIPine [Norvasc] 5 mg PO PC-BRKFST 02/11/22 02/28/22 History Loperamide [Imodium] 2 mg PO QID PRN 02/28/22 02/28/22 History Nitrofurantoin Monohyd/M-Cryst 100 mg PO Q12HR 02/28/22 02/28/22 History [Macrobid] Ondansetron Odt [Zofran Odt] 4 mg PO Q8H PRN 02/28/22 02/28/22 History Allergies Allergy/AdvReac Type Severity Reaction Status Date / Time Penicillins Allergy Rash/Hives Verified 02/28/22 07:48 Sulfa (Sulfonamide Allergy Rash/Hives Verified 02/28/22 07:48 Antibiotics) Iodinated Contrast Media AdvReac Swelling Verified 02/28/22 07:48 all over body Surgical - Exam Osteopathic Statement: *. No significant issues noted on an osteopathic struc tural exam other than those noted in the History and Physical/Consult. Vital Signs Temp Pulse Resp BP Pulse Ox 101 F H 121 H 18 148/89 96 02/28/22 07:41 02/28/22 07:41 02/28/22 07:41 02/28/22 07:41 02/28/22 07:41 - General well developed, well nourished, other (appears uncomfortable and complaining of feeling cold although she has 4 blankets) - Neck trachea midline - Respiratory clear to auscultation - Cardiovascular Rhythm: regular - Abdomen Abdomen: soft, tender, bowel sounds, no guarding, no rigid, no rebound, no distended Hernia: incisional, reducible (soft) Results - Labs 02/28/22 07:56 02/28/22 07:56 Abnormal Lab Results - Last 24 Hours (Table) 02/28/22 02/28/22 02/28/22 Range/Units 07:56 07:56 07:56 WBC 15.7 H (3.8-10.6) k/uL Neutrophils # 14.7 H (1.3-7.7) k/uL Lymphocytes # 0.1 L (1.0-4.8) k/uL Sodium 124 L (137-145) mmol/L Chloride 95 L (98-107) mmol/L Carbon Dioxide 21 L (22-30) mmol/L Glucose 156 H (74-99) mg/dL Magnesium 1.3 L (1.6-2.3) mg/dL Urine Ketones 1+ H (Negative) Ur Leukocyte Esterase Small H (Negative) Urine WBC 6 H (0-5) /hpf Urine Mucus Rare H (None) /hpf Diabetes panel 02/28/22 Range/Units 07:56 Sodium 124 L (137-145) mmol/L Potassium 4.6 (3.5-5.1) mmol/L Chloride 95 L (98-107) mmol/L Carbon Dioxide 21 L (22-30) mmol/L BUN 11 (7-17) mg/dL Creatinine 0.68 (0.52-1.04) mg/dL Glucose 156 H (74-99) mg/dL Calcium 8.9 (8.4-10.2) mg/dL AST 35 (14-36) U/L ALT 22 (4-34) U/L Alkaline Phosphatase 101 (38-126) U/L Total Protein 7.1 (6.3-8.2) g/dL Albumin 4.0 (3.5-5.0) g/dL Calcium panel 02/28/22 Range/Units 07:56 Calcium 8.9 (8.4-10.2) mg/dL Albumin 4.0 (3.5-5.0) g/dL Pituitary panel 02/28/22 Range/Units 07:56 Sodium 124 L (137-145) mmol/L Potassium 4.6 (3.5-5.1) mmol/L Chloride 95 L (98-107) mmol/L Carbon Dioxide 21 L (22-30) mmol/L BUN 11 (7-17) mg/dL Creatinine 0.68 (0.52-1.04) mg/dL Glucose 156 H (74-99) mg/dL Calcium 8.9 (8.4-10.2) mg/dL Adrenal panel 02/28/22 Range/Units 07:56 Sodium 124 L (137-145) mmol/L Potassium 4.6 (3.5-5.1) mmol/L Chloride 95 L (98-107) mmol/L Carbon Dioxide 21 L (22-30) mmol/L BUN 11 (7-17) mg/dL Creatinine 0.68 (0.52-1.04) mg/dL Glucose 156 H (74-99) mg/dL Calcium 8.9 (8.4-10.2) mg/dL Total Bilirubin 1.0 (0.2-1.3) mg/dL AST 35 (14-36) U/L ALT 22 (4-34) U/L Alkaline Phosphatase 101 (38-126) U/L Total Protein 7.1 (6.3-8.2) g/dL Albumin 4.0 (3.5-5.0) g/dL - Imaging CT scan - abdomen: report reviewed (from earlier in the month) Assessment and Plan (1) Ventral hernia without obstruction or gangrene Current Visit: Yes Status: Acute Code(s): K43.9 - VENTRAL HERNIA WITHOUT OBSTRUCTION OR GANGRENE SNOMED Code(s): 917483850 (2) History of duodenal ulcer Current Visit: Yes Status: Acute Code(s): Z87.19 - PERSONAL HISTORY OF OTHER DISEASES OF THE DIGESTIVE SYSTEM SNOMED Code(s): 912351465 (3) History of UTI Current Visit: Yes Status: Acute Code(s): Z87.440 - PERSONAL HISTORY OF UR INARY (TRACT) INFECTIONS SNOMED Code(s): 3976291209060 (4) Dehydration Current Visit: Yes Status: Acute Code(s): E86.0 - DEHYDRATION SNOMED Code(s): 48739307 (5) Febrile illness, acute Current Visit: Yes Status: Acute Code(s): R50.9 - FEVER, UNSPECIFIED SNOMED Code(s): 899365691 (6) Hypomagnesemia Current Visit: Yes Status: Acute Code(s): E83.42 - HYPOMAGNESEMIA SNOMED Code(s): 054268551 (7) Hyponatremia syndrome Current Visit: Yes Status: Acute Code(s): E87.1 - HYPO-OSMOLALITY AND HYPONATREMIA SNOMED Code(s): 0219614 (8) Weakness Current Visit: Yes Status: Acute Code(s): R53.1 - WEAKNESS SNOMED Code(s): 93775214 Plan: Her abdominal exam is currently benign. No anemia or elevated liver function tests. UA is fairly unremarkable, but I recommend antibiotics emperically until persistant infection is ruled out. Recommend PPI due to history of duodenal ulcer. Serial exams. Currently nonsurgical
[2022-02-28] MEDS ORDERED: ONDANSETRON ODT 4 MG TAB PO PRN (17:36)
[2022-02-28] MEDS: SODIUM CHLORIDE 0.9% 1,000 ML IV SCH (18:28)
--- NOTE | 2022-02-28 20:19 | HP ---
HISTORY AND PHYSICAL DATE OF SERVICE: 02/28/2022 CHIEF COMPLAINTS: Change in mental status and fever. HISTORY OF PRESENT ILLNESS: This 86-year-old woman with a past medical history of hypertension had recurrent UTIs. The patient was apparently living by herself recently. Patient also had apparent CBD obstruction. Patient had ERCP elsewhere in [facility]. The patient was also found to have U at that time. Currently the patient is weak, dehydrated, tired and mildly confused. The patient also had features of UTI. Patient is being admitted for further evaluation and treatment. History is obtained from discussion with staff and review of chart and discussion with the son and [id number] at the bedside. PAST MEDICAL HISTORY: Hypertension, hypothyroidism, recurrent UTIs. MEDICATIONS: Reviewed. They include Norvasc. Doses and the rest of the medications are noted. ALLERGIES: ALLERGIES INCLUDE PENICILLI. Family history, social history and review of systems could not be taken because of change in mental status. PHYSICAL EXAMINATION: Pulse is 85, blood pressure 105/53, respiration 18. HEENT: Conjunctivae normal. NECK: No jugular venous distention. CARDIOVASCULAR: S1, S2 muffled. RESPIRATION: Breath sounds diminished at the bases. No rhonchi. No crackles. ABDOMEN: Soft, nontender. LEGS: No edema. No swelling. NERVOUS SYSTEM: Diffusely weak. SKIN: No ulcer, rash, bleeding. JOINTS: No active deforming arthropathy. LABS: WBC 15.7. Other labs are noted. ASSESSMENT: 1. Acute urinary tract infection with failure of outpatient treatment. 2. Recurrent urinary tract infections. 3. Weakness. 4. Dehydration. 5. Hyponatremia. 6. History of hypertension. RECOMMENDATIONS AND DISCUSSION: In this 86-year-old woman who presented with multiple complex medical issues, we will monitor the patient closely, obtain urine and blood cultures and initiate IV antibiotics. Infectious disease evaluation. PT/OT evaluation. fur floor worker to consult regarding the home situation. Overall prognosis is guarded. Home medications will be continued. Further recommendations to follow. Discussed with the family. MMODL / IJN: [id number] / MTDDamian
[2022-02-28] MEDS ORDERED: ACETAMINOPHEN TAB 325 MG TAB PO STA (20:56)
[2022-03-01] MEDS: LEVOTHYROXINE 50 MCG TAB PO SCH (07:46)
[2022-03-01] MEDS: amLODIPine 5 MG TAB PO SCH (07:46)
[2022-03-01] MEDS: LOSARTAN 50 MG TAB PO SCH ×2 (07:46→07:56)
[2022-03-01] MEDS: SODIUM CHLORIDE 0.9% 1,000 ML IV SCH ×2 (07:46→20:40)
[2022-03-01] MEDS ORDERED: PANTOPRAZOLE 40 MG/10 ML VIAL IV SCH (09:00)
--- NOTE | 2022-03-01 09:17 | P.PN ---
Subjective Progress Note Date: 03/01/22 The patient is seen on rounds. Feeling much better today. Denies nausea, vomiting or abdominal pain. She is hungry. Objective - Vital Signs Vital signs: Vital Signs Temp 98.2 F 03/01/22 05:00 Pulse 68 03/01/22 05:00 Resp 16 03/01/22 05:00 BP 115/72 03/01/22 05:00 Pulse Ox 90 L 03/01/22 05:00 FiO2 Intake & Output 02/28/22 03/01/22 03/01/22 18:59 06:59 18:59 Intake Total 900 Balance 900 Weight 55.338 kg 54 kg Intake: Intake, IV Titration 900 Amount Sodium Chloride 0.9% 1, 900 000 ml @ 75 mls/hr IV . [id number] [facility] Rx#:[id number] Other: Voiding Method Toilet - Constitutional General appearance: Present: cooperative, no acute distress - Gastrointestinal General gastrointestinal: Present: normal bowel sounds, soft. Absent: distended, tenderness (No tenderness, guarding or rebound) - Labs CBC & Chem 7: 02/28/22 07:56 02/28/22 07:56 Labs: Abnormal Lab Results - Last 24 Hours (Table) 02/28/22 Range/Units 07:56 Urine Ketones 1+ H (Negative) Ur Leukocyte Esterase Small H (Negative) Urine WBC 6 H (0-5) /hpf Urine Mucus Rare H (None) /hpf Assessment and Plan (1) Ventral hernia without obstruction or gangrene Current Visit: Yes Status: Acute Code(s): K43.9 - VENTRAL HERNIA WITHOUT OBSTRUCTION OR GANGRENE SNOMED Code(s): 166833327 (2) History of duodenal ulcer Current Visit: Yes Status: Acute Code(s): Z87.19 - PERSONAL HISTORY OF OTHER DISEASES OF THE DIGESTIVE SYSTEM SNOMED Code(s): 073829368 (3) History of UTI Current Visit: Yes Status: Acute Code(s): Z87.440 - PERSONAL HISTORY OF URINARY (TRACT) INFECTIONS SNOMED Code(s): 1309569941950 (4) Dehydration Current Visit: Yes Status: Acute Code(s): E86.0 - DEHYDRATION SNOMED Code(s): 13770794 (5) Febrile illness, acute Current Visit: Yes Status: Acute Code(s): R50.9 - FEVER, UNSPECIFIED SNOMED Code(s): 487174098 (6) Hypomagnesemia Current Visit: Yes Status: Acute Code(s): E83.42 - HYPOMAGNESEMIA SNOMED Code(s): 804496495 (7) Hyponatremia syndrome Current Visit: Yes Status: Acute Code(s): E87.1 - HYPO-OSMOLALITY AND HYPONATREMIA SNOMED Code(s): 9574042 (8) Weakness Current Visit: Yes Status: Acute Code(s): R53.1 - WEAKNESS SNOMED Code(s): 84489350 Plan: Clinically the patient is improved. Her abdominal exam is benign. Her diet will be advanced. We will follow-up on a as needed basis.
[2022-03-01 10:31] LABS: Basophils # (A) 0.04 X 10*3/uL (0.00-0.10); Basophils % (A) 0.8 %; Eosinophils # (A) 0.05 X 10*3/uL (0.04-0.35); Eosinophils % (A) 1.1 %; HCT 34.2 % (37.2-46.3); HGB 11.2 g/dL (12.0-15.0); Immature Grans, Automated 0.8 %; Lymphocytes # (A) 0.31 X 10*3/uL (0.90-5.00); Lymphocytes % (A) 6.6 %; MCH 27.9 pg (27.0-32.0); MCHC 32.7 g/dL (32.0-37.0); MCV 85.1 fL (80.0-97.0); Mean Platelet Volume 9.9 fL (9.5-12.2); Monocytes # (A) 0.49 X 10*3/uL (0.20-1.00); Monocytes % (A) 10.4 %; NRBC Per 100 WBC 0 /100 WBCS (0.0-0.0); Neutrophils # (A) 3.79 X 10*3/uL (1.80-7.70); Neutrophils % (A) 80.3 %; Platelet Count 158 X 10*3/uL (140-440); RBC 4.02 X 10*6/uL (4.10-5.20); RDW 13.4 % (11.5-14.5); WBC 4.72 X 10*3/uL (4.50-10.00)
[2022-03-01 10:50] LABS: African American GFR (CKD) 66.6 (60.0-200.0); Anion Gap 6.8 mmol/L (10.00-18.00); BUN/Creat Ratio 12.67 Ratio (12.00-20.00); Blood Urea Nitrogen 11.4 mg/dL (9.0-27.0); Calcium 8.1 mg/dL (8.7-10.3); Carbon Dioxide 21.2 mmol/L (20.0-27.5); Non-African American GFR(CKD) 57.5 (60.0-200.0); Potassium 4.3 mmol/L (3.5-5.5)
[2022-03-01 15:24] VITALS: BMI 21.0
--- NOTE | 2022-03-01 18:11 | PN ---
PROGRESS NOTE DATE OF SERVICE: 03/01/2022 This 86-year-old woman who was admitted with acute UTI with failure of outpatient treatment is being closely monitored. No chest pain. No palpitations. Complains of weakness. Cultures are negative so far. PHYSICAL EXAMINATION: Pulse is 72, blood pressure 127/63, respiration 16. HEENT: Conjunctivae normal. NECK: No jugular venous distention. CARDIOVASCULAR: S1, S2 muffled. RESPIRATION: Breath sounds diminished at the bases. ABDOMEN: Soft. NERVOUS SYSTEM: Diffusely weak. LABS: WBC 4.7, sodium 126. Other labs are noted. ASSESSMENT: 1. Acute urinary tract infection with failure of outpatient treatment. 2. Recurrent urinary tract infections. 3. Weakness. 4. Dehydration. 5. Hyponatremia. 6. History of hypertension. DISCUSSION AND RECOMMENDATIONS: I recommend to continue current medications, continue with the monitoring, symptomatic treatment. Continue with antibiotics. Infectious disease evaluation. Continue with IV fluids. PT/OT evaluation. Guarded prognosis because of multiple complex medical issues. Further recommendations to follow. MMODL / IJN: [id number] /
[2022-03-01] MEDS: ACETAMINOPHEN TAB 325 MG TAB PO PRN (20:39)
--- NOTE | 2022-03-01 23:23 | P.CONS ---
History of Present Illness - Reason for Consult Consult date: 03/01/22 Urinary tract infection Requesting physician: Lucy Sahni - Chief Complaint Not feeling well x few days - History of Present Illness Patient is 86-year-old female with a past medical history significant for partial colectomy UTI and aortic stent, presented to the hospital yesterday morning for evaluation of not feeling well for the last day or 2 and the patient did have decreased oral intake and did have nausea and vomiting patient apparently was recently started on Macrobid 3 days ago for suspected UTI however the patient states unable to take anything on empty stomach, patient feeling weak and feels like she will fall with the symptom the patient presented to hospital on arrival to the ER patient did have a fever of 101 F patient did have white count of 15.7 with a left shift kidney function has been normal urine was mildly positive influenza and wood PCR was negative patient did have a chest x-ray no acute pulmonary process patient was started on Levaquin because of her penicillin allergy infectious disease was consulted for further manageme nt of antibiotic therapy patient did have normal liver enzymes. Review of Systems Positive point has been mentioned in the HPI rest of the systems are negative Past Medical History Past Medical History: Hypertension, Thyroid Disorder Additional Past Medical History / Comment(s): Pt states she has chronic diarrhea, [place] w/ bilateral hearing aids in place. History of Any Multi-Drug Resistant Organisms: None Reported Past Surgical History: Appendectomy, Bowel Resection, Heart Catheterization With Stent Past Anesthesia/Blood Transfusion Reactions: No Reported Reaction Date of Last Stent Placement:: 2005 Past Psychological History: No Psychological Hx Reported Smoking Status: Former smoker Past Alcohol Use History: None Reported Past Drug Use History: None Reported Additional Drug Use History / Comment(s): Pt states she stopped smoking in 1992. Medications and Allergies Home Medications Medication Instructions Recorded Confirmed Type Hyoscyamine Sulfate [Levsin-Sl] 0.125 mg SL AC-TID PRN 02/11/22 02/28/22 History Levothyroxine Sodium [Synthroid] 50 mcg PO AC-BRKFST 02/11/22 02/28/22 History Losartan [Cozaar] 50 mg PO PC-BRKFST 02/11/22 02/28/22 History amLODIPine [Norvasc] 5 mg PO PC-BRKFST 02/11/22 02/28/22 History Loperamide [Imodium] 2 mg PO QID PRN 02/28/22 02/28/22 History Ondansetron Odt [Zofran Odt] 4 mg PO Q8H PRN 02/28/22 02/28/22 History Acetaminophen Tab [Tylenol] 325 mg PO Q6HR PRN tab 03/02/22 Rx Pantoprazole [Protonix] 40 mg PO AC-BRKFST 30 Days #30 tab 03/02/22 Rx cefUROXime axetiL [Ceftin] 500 mg PO BID 7 Days #14 tab 03/02/22 Rx Allergies Allergy/AdvReac Type Severity Reaction Status Date / Time Penicillins Allergy Rash/Hives Verified 02/28/22 07:48 Sulfa (Sulfonamide Allergy Rash/Hives Verified 02/28/22 07:48 Antibiotics) Iodinated Contrast Media AdvReac Swelling Verified 02/28/22 07:48 all over body Physical Exam Vitals: Vital Signs Temp Pulse Pulse Resp BP BP Pulse Ox 03/01/22 05:00 98.2 F 68 16 115/72 90 L 02/28/22 23:39 98 F 83 16 102/58 92 L 02/28/22 20:48 98.6 F 89 18 109/66 93 L 02/28/22 18:32 92 18 111/68 94 L 02/28/22 15:00 97.7 F 18 02/28/22 14:00 85 18 105/53 98 02/28/22 13:00 88 18 105/53 98 02/28/22 12:00 97.9 F 87 18 106/55 96 02/28/22 11:00 98.2 F 88 18 106/55 96 Intake and Output 02/28/22 03/01/22 03/01/22 22:59 06:59 14:59 Intake Total 900 Balance 900 Intake: Intake, IV Titration 900 Amount Sodium Chloride 0.9% 1, 900 000 ml @ 75 mls/hr IV . [id number] [facility] Rx#:[id number] Other: Voiding Method Toilet Weight 54 kg GENERAL DESCRIPTION: Elderly female lying in bed, no distress. No tachypnea or accessory muscle of respiration use. HEENT: Shows Pallor , no scleral icterus. Oral mucous membrane is dry. No pharyngeal erythema or thrush NECK: Trachea central, no thyromegaly. LUNGS: Unlabored breathing. Clear to auscultation anteriorly. No wheeze or crackle. HEART: S1, S2, regular rate and rhythm. No loud murmur ABDOMEN: Soft, no tenderness , guarding or rigidity, no organomegaly EXTREMITIES: No edema of feet. SKIN: No rash, no masses palpable. NEUROLOGICAL: The patient is awake, alert, oriented x3, mood and affect normal. Results CBC & Chem 7: 03/01/22 06:34 03/01/22 06:34 Labs: Abnormal Lab Results - Last 24 Hours (Table) 03/01/22 03/01/22 Range/Units 06:34 06:34 RBC 4.02 L (4.10-5.20) X 10*6/uL Hgb 11.2 L (12.0-15.0) g/dL Hct 34.2 L (37.2-46.3) % Lymphocytes # 0.31 L (0.90-5.00) X 10*3/uL Sodium 126 L (135-145) mmol/L Anion Gap 6.80 L (10.00-18.00) mmol/L Est GFR (CKD-EPI)NonAf 57.5 L (60.0-200.0) Calcium 8.1 L (8.7-10.3) mg/dL Microbiology - Last 24 Hours (Table) 02/28/22 08:34 Blood Culture - Preliminary Blood No Growth after 24 hours Assessment and Plan (1) Febrile illness, acute Current Visit: Yes Status: Acute Code(s): R50.9 - FEVER, UNSPECIFIED SNOMED Code(s): 065008655 Plan: 1patient presented to hospital with sepsis in this patient who did have fever elevated white count in this patient who do have a complicated abdominal history with a history of biliary obstruction as well as partial colectomy however patient currently do have a normal liver enzymes making cholangitis to be less likely, however patient urine is not significantly positive and will need to rule out intra-abdominal source. 2patient with multiple antibiotic allergies that would limit the number of a ntibiotics safe to use. 3discontinue Levaquin. 4start the patient on Rocephin. 5obtain a CT abdominal pelvis with oral contrast only. We will follow on clinical condition and cultures to further adjust medication if needed Thank you for this consultation will follow this patient along with you Time with Patient: Greater than 30
[2022-03-02] MEDS: ACETAMINOPHEN TAB 325 MG TAB PO PRN (05:37)
[2022-03-02] MEDS ORDERED: PANTOPRAZOLE 40 MG TABLET PO SCH (07:30)
[2022-03-02] MEDS: BARIUM SULFATE 450 ML ORAL.SUSP BOTTLE PO PRN ×2 (07:52→10:58)
[2022-03-02] MEDS: LOSARTAN 50 MG TAB PO SCH (08:13)
[2022-03-02] MEDS: amLODIPine 5 MG TAB PO SCH (08:14)
[2022-03-02] MEDS: LEVOTHYROXINE 50 MCG TAB PO SCH (08:15)
[2022-03-02] MEDS: SODIUM CHLORIDE 0.9% 1,000 ML IV SCH (08:57)
[2022-03-02 12:32] VITALS: BP 138/80; PULSE 82; RESP 17; TEMP 96.9
--- NOTE | 2022-03-02 12:34 | CDI ---
Documentation Clarification Form Date: 03/02/2022 11:51 AM From: Maribeth Contreras RN CCDS Admit Date: 02/28/2022 12:22:00 PM Patient Name: Elaine Nelson Visit Number: [id number] Discharge Date: ATTENTION: The Clinical Documentation Specialists (CDI) and [facility] Coding Staff appreciate your assistance in clarifying documentation. Please respond to the clarification below the line at the bottom and electronically sign. The CDI & [facility] Coding staff will review the response and follow-up if needed. Please note: Queries are made part of the Legal Health Record. If you have any questions, please contact the author of this message via ITS. Dr. Lucy Sahni Sepsis is documented ID consult, 03/01, but is not noted in subsequent documentation. Clarification is requested. History/Risk Factors: 86-year-old female presents to the ED with change in mental status and a fever. The patient is weak, dehydrated and confused. Medical History: Recent CBD obstruction with ERCP, HTN and recurrent Utis. 02/28, H&P. Clinical Indicators: VSS: B/P 148/89; HR 121; Temp 101 F Oral; RR 18; SpO2 96% room air Labs: Wbc 15.7; Neutrophils 14.7; NA 124; UA - Leukocyte esterase small, Wbc 6, Hyaline casts 1. 02/28 Blood Cultures No growth after 48 hours 03/01, ID Consult: 1patient presented to hospital with sepsis in this patient who did have fever elevated white count in this patient who do have a complicated abdominal history with a history of biliary obstruction as well as partial colectomy however patient currently do have a normal liver enzyme making cholangitis to be less likely, however patient urine is not significantly positive and will need to rule out intra-abdominal source Treatment: 02/28 0.9ns 500cc bolus IV x 1; 02/28 Tylenol 1,000mg PO x 1; 02/28 Levofloxacin 750mg IVPB x 1; 02/28 Metronidazole 500mg x 1; 03/01 Ceftriaxone 1gm IVPB Q24H; 02/28 0.9NS 75cc/hr. Please clarify if the Sepsis is: [ ] Sepsis confirmed, remains under treatment [ ] Sepsis confirmed, resolved [ ] Sepsis ruled out [ ] Other condition, please specify [ ] Unable to determine (Template Last Revised: October 2020) Unable to determine MTDD
--- NOTE | 2022-03-02 12:43 | CDI ---
Documentation Clarification Form Date: 03/02/2022 12:36:38 PM From: Maribeth Contreras RN CCDS Admit Date: 02/28/2022 12:22:00 PM Patient Name: Elaine Nelson Visit Number: [id number] Discharge Date: ATTENTION: The Clinical Documentation Specialists (CDI) and [facility] Coding Staff appreciate your assistance in clarifying documentation. Please respond to the clarification below the line at the bottom and electronically sign. The CDI & [facility] Coding staff will review the response and follow-up if needed. Please note: Queries are made part of the Legal Health Record. If you have any questions, please contact the author of this message via ITS. Dr. Lucy Sahni Your patient has the documented symptom of Change in mental status and fever 02/28, H&P. Additional clarification regarding the etiology/cause of this symptom is requested. History/Risk Factors: 86-year-old female presents to the ED with change in mental status and a fever. The patient is weak, dehydrated and confused. Medical History: Recent CBD obstruction with ERCP, HTN and recurrent Utis. 02/28, H&P. Clinical Indicators: VSS: B/P 148/89; HR 121; Temp 101 F Oral; RR 18; SpO2 96% room air Labs: Wbc 15.7; Neutrophils 14.7; NA 124; UA - Leukocyte esterase small, Wbc 6, Hyaline casts 1. 02/28 Blood Cultures No growth after 48 hours Treatment: 02/28 0.9ns 500cc bolus IV x 1; 02/28 Tylenol 1,000mg PO x 1; 02/28 Levofloxacin 750mg IVPB x 1; 02/28 Metronidazole 500mg x 1; 03/01 Ceftriaxone 1gm IVPB Q24H; 02/28 0.9NS 75cc/hr. Please clarify the etiology of the symptom of Change in mental status. [ ] Metabolic Encephalopathy due to infectious process [ ] Other condition (please specify) [ ] Unable to determine (Template Last Revised: October 2020) Unable to determine MTDD
--- NOTE | 2022-03-02 14:19 | CT ---
EXAMINATION TYPE: CT abdomen pelvis wo con DATE OF EXAM: 03/02/2022 COMPARISON: 02/11/2022 INDICATION: Weakness, febrile illness, hyponatremia, sepsis/abdominal source DLP: 364 mGycm, Automated exposure control for dose reduction was used. CONTRAST: 0 mL of Isovue 300. Study performed with Oral Contrast TECHNIQUE: Axial images were obtained from above the diaphragm to the pubic rami in the axial plane a t 5 mm thick sections. Reconstructed images are reviewed on the computer in the coronal plane. FINDINGS: Limited CT sections are obtained the lung bases. The lung bases are clear. CT ABDOMEN: Liver: Normal Spleen: Normal Pancreas: Normal Adrenal glands: The adrenal glands are normal. Gallbladder: Surgically absent Kidneys: No masses are evident. No hydronephrosis is present. No cysts are present. No renal stone s are evident. Aorta: Vascular calcification is within the aorta. 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 This extends to the iliac vessels. Endovascular leak cannot be evaluated on a noncontrast study. Inferior vena cava: Normal. CT PELVIS: There is no anterior abdominal wall hernia containing nonobstructed colon within the anterior pelvis. Loops of bowel appear normal. No suspicious adjacent inflammatory changes evident. Significant diver ticulosis is not evident. There are loops of bowel which are incompletely distended or lack oral cont rast limiting their evaluation. Appendix: Not identified. No suspicious dilated tubular structure or inflammatory change evident. Urinary bladder: Distended. Genitourinary structures: Uterus appears normal. Adnexa are normal. Osseous structures: No suspicious lytic or sclerotic lesions. IMPRESSIONS: 1. No suspicious collection to suggest an etiology for sepsis.
--- NOTE | 2022-03-02 14:56 | P.PN ---
Subjective Progress Note Date: 03/02/22 Principal diagnosis: Fever Patient is 86 year female presented to the hospital for not feeling well patient did have a fever and elevated white count and a mildly positive UA, did have a CT of abdominal pelvis this morning did not show any acute abnormality. On today's evaluation that is 03/02/2022 the patient denies having any fever or chills, the patient is breathing comfortably, the patient denies having any chest pain shortness of cough no nausea no vomiting no abdominal pain or diarrhea she's feeling better and wants to go home Objective - Vital Signs Vital signs: Vital Signs Temp 96.9 F L 03/02/22 12:30 Pulse 82 03/02/22 12:30 Resp 17 03/02/22 12:30 BP 138/80 03/02/22 12:30 Pulse Ox 96 03/02/22 12:30 FiO2 Intake & Output 03/01/22 03/02/22 03/02/22 18:59 06:59 18:59 Intake Total 1040 240 Balance 1040 240 Weight 54 kg 53.5 kg Intake: Intake, IV Titration 920 Amount Sodium Chloride 0.9% 1, 870 000 ml @ 75 mls/hr IV . [id number] [facility] Rx#:[id number] cefTRIAXone 1 gm In 50 Sodium Chloride 0.9% 50 ml @ 100 mls/hr IVPB Q24HR [facility] Rx#:[id number] Oral 120 240 Other: Voiding Method Toilet # Voids 4 1 # Bowel Movements 1 1 - Exam GENERAL DESCRIPTION: An elderly female up in the chair in no distress RESPIRATORY SYSTEM: Unlabored breathing , decreased breath sounds at bases HEART: S1 S2 regular rate and rhythm , ABDOMEN: Soft , no tenderness EXTREMITIES: No edema feet - Labs CBC & Chem 7: 03/01/22 06:34 03/01/22 06:34 Labs: Microbiology - Last 24 Hours (Table) 02/28/22 08:50 Blood Culture - Preliminary Blood No Growth after 48 hours 02/28/22 08:34 Blood Culture - Preliminary Blood No Growth after 48 hours Assessment and Plan (1) Febrile illness, acute Current Visit: Yes Status: Acute Code(s): R50.9 - FEVER, UNSPECIFIED SNOMED Code(s): 776120061 Plan: 1patient presented to hospital with sepsis in this patient who did have fever elevated white count in this patient who do have a complicated abdominal history with a 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
[2022-03-02] MEDS ORDERED: LEVOFLOXACIN 750MG-D5W PMX 750 MG in DEXTROSE/WATER 1 150ML.BAG IVPB SCH (18:00)
--- NOTE | 2022-03-07 00:50 | P.DS ---
Providers Date of admission: 02/28/22 12:22 Expected date of discharge: 03/02/22 Attending physician: Ryan Patino MD Consults: 02/28/22 11:55 Consult Physician Urgent Consulting Provider: Chintan Vazquez Consult Reason/Comments: abd pain Do you want consulting provider notified?: Yes 02/28/22 17:47 Consult Physician Routine Consulting Provider: Tacho Beauchamp Consult Reason/Comments: uti Do you want consulting provider notified?: Yes Primary care physician: Burak Odom Hospital Course: Final Diagnosis Acute urinary tract infection with failure of outpatient treatment Recurrent urinary tract infections Weakness Dehydration Hyponatremia History of hypertension Discharge disposition Patient is being discharged in a stable condition with guarded prognosis to home with home care. Patient will follow-up with Dr. Odom in the outpatient setting upon discharge. Patient is to continue with oral ceftin 500mg bid for the next week and follow up outpatient. Total time taken is greater than 35 minutes. Hospital course This is an 86-year-old female who was recently admitted with acute UTI with failure of outpatient treatment. Patient started on IV abx and ID following and patient showed improved. Patient with weakness and was evaluated by physical therapy and is refusing rehab. Patient agreeable with home care. Patient will continue with oral ceftin 500mg bid for one week. CT abdomen was non-specific and recommend outpatient follow up. Patient is requesting to go home. Currently no reports of chest pain, shortness of breath, or palpitations. Patient is afebrile. No reports of nausea or vomiting and patient is tolerating diet. Patient will be discharged home today. Guarded prognosis. High risk for readmissions. On exam vital signs are stable. Cardio S1, S2 are muffled. Respiratory system shows diminished breath sounds at the bases with no wheezing or rhonchi noted. Abdomen is soft and nontender. Nervous system shows diffuse weakness. Please refer to medication reconciliation sheet for a list of medications. The impression and plan of care has been dictated by Kamilla Desouza, Nurse Practitioner as directed. Dr. Bora MD I have performed a history and examination and MDM of this patient, discussed the same with the dictator, and agree with the dictator's assessment and plan as written ,documented as a scribe. Based on total visit time, I have performed more than 50% of the visit. Patient Condition at Discharge: Fair Plan - Discharge Summary Discharge Rx Participant: No New Discharge Prescriptions: New Pantoprazole [Protonix] 40 mg PO AC-BRKFST 30 Days #30 tab cefUROXime axetiL [Ceftin] 500 mg PO BID 7 Days #14 tab Acetaminophen Tab [Tylenol] 325 mg PO Q6HR PRN tab PRN Reason: Fever And/ Or Pain Continue Hyoscyamine Sulfate [Levsin-Sl] 0.125 mg SL AC-TID PRN PRN Reason: Pain Loperamide [Imodium] 2 mg PO QID PRN PRN Reason: Loose Stool amLODIPine [Norvasc] 5 mg PO PC-BRKFST Losartan [Cozaar] 50 mg PO PC-BRKFST Levothyroxine Sodium [Synthroid] 50 mcg PO AC-BRKFST Ondansetron Odt [Zofran ODT] 4 mg PO Q8H PRN PRN Reason: Nausea Discontinued Nitrofurantoin Monohyd/M-Cryst [Macrobid] 100 mg PO Q12HR Discharge Medication List Hyoscyamine Sulfate [Levsin-Sl] 0.125 mg SL AC-TID PRN 02/11/22 [History] Levothyroxine Sodium [Synthroid] 50 mcg PO AC-BRKFST 02/11/22 [History] Losartan [Cozaar] 50 mg PO PC-BRKFST 02/11/22 [History] amLODIPine [Norvasc] 5 mg PO PC-BRKFST 02/11/22 [History] Loperamide [Imodium] 2 mg PO QID PRN 02/28/22 [History] Ondansetron Odt [Zofran ODT] 4 mg PO Q8H PRN 02/28/22 [History] Acetaminophen Tab [Tylenol] 325 mg PO Q6HR PRN tab 03/02/22 [Rx] Pantoprazole [Protonix] 40 mg PO AC-BRKFST 30 Days #30 tab 03/02/22 [Rx] cefUROXime axetiL [Ceftin] 500 mg PO BID 7 Days #14 tab 03/02/22 [Rx] Follow up Appointment(s)/Referral(s): Burak Odom MD [Primary Care Provider] - 1-2 days (office closes at noon on fridays. patient will have to schedule own appt;) [facility], [NON-STAFF] - 1 Week Ambulatory/Diagnostic Orders: Complete Blood Count w/diff [LAB.AMB] Time Frame: 3 Days, Location: None Selected Activity/Diet/Wound Care/Special Instructions: Activity Limited until follow-up Follow-up with primary care provider on discharge early next week Continue with home care in the outpatient setting Recommend repeat labs in the outpatient setting in 2-3 days of CBC and BMP Continue regular diet Discharge Disposition: HOME WITH HOME HEALTH SERVICES
== END 2022-03-02 16:37 | disposition home health service (06) | DRG 690 ==
LOC: EC 07:26 → 3SCARD 12:22 → 5NMEDONC 15:26
PROVIDERS: ADMIT Internal Medicine; ATTEND Internal Medicine
DX: N39.0 Urinary tract infection, site not specified (principal); E87.1 Hypo-osmolality and hyponatremia; E03.9 Hypothyroidism, unspecified; Z20.822 Contact with and (suspected) exposure to COVID-19; E83.42 Hypomagnesemia; R41.0 Disorientation, unspecified; E86.0 Dehydration; K59.00 Constipation, unspecified; I10 Essential (primary) hypertension; K52.9 Noninfective gastroenteritis and colitis, unspecified; K43.9 Ventral hernia without obstruction or gangrene; Z79.890 Hormone replacement therapy; Z87.11 Personal history of peptic ulcer disease; Z87.440 Personal history of urinary (tract) infections; Z87.891 Personal history of nicotine dependence; Z88.0 Allergy status to penicillin; Z90.49 Acquired absence of other specified parts of digestive tract; Z97.4 Presence of external hearing-aid; Z87.19 Personal history of other diseases of the digestive system; Z88.2 Allergy status to sulfonamides; Z91.041 Radiographic dye allergy status
CPT/HCPCS: 36415; 71046; 74018; 74176; 80048; 80053; 81001; 82150; 83605; 83690; 83735; 84484; 85025; 87040; 87502; 87635; 93005; 96361; 96365; 96366; 96367; 96368; 96375; 96376; 99285